=== PATIENT | male | born 1950 | race Hispanic/Latino ===

== ENCOUNTER → 2019-03-03 | Outpatient (CLI) | payer OTHER ==
[~2019-03-03] VITALS: Ht 170.2 cm; Wt 68.5 kg
[~2019-03-03] MED LIST: REGADENOSON 0.4 MG/5 ML PF SYG IVP SCH
== END | disposition home or self-care (01) ==
LOC: SHCH 08:03
PROVIDERS: ATTEND Internal Medicine Cardiovascular Disease
DX: R07.9 Chest pain, unspecified (principal); I10 Essential (primary) hypertension; R01.1 Cardiac murmur, unspecified
CPT/HCPCS: 78452; 93017; 96374; A9500 ×2; J2785

== ENCOUNTER → 2019-04-15 | Outpatient (CLI) | payer OTHER | END | disposition home or self-care (01) | LOC: EDUNIT# 03-13 13:30 → SHCH 15:24 | PROVIDERS: ATTEND Internal Medicine Cardiovascular Disease | DX: I08.0 Rheumatic disorders of both mitral and aortic valves (principal); I10 Essential (primary) hypertension; R07.9 Chest pain, unspecified | CPT/HCPCS: 93306 ==

== ENCOUNTER → 2021-01-12 | Outpatient (CLI) | payer MEDICARE | END | disposition home or self-care (01) | LOC: SHCH 15:26 | PROVIDERS: ATTEND Internal Medicine Cardiovascular Disease | DX: I35.1 Nonrheumatic aortic (valve) insufficiency (principal); R01.1 Cardiac murmur, unspecified | CPT/HCPCS: 93306; 93356 ==

== ENCOUNTER → 2022-11-13 | Outpatient (CLI) | payer MEDICARE | END | disposition home or self-care (01) | LOC: SHCH 09:03 | PROVIDERS: ATTEND Internal Medicine Cardiovascular Disease | DX: I10 Essential (primary) hypertension (principal); E78.5 Hyperlipidemia, unspecified | CPT/HCPCS: 93978 ==